=== PATIENT | male | born 1990 | race Hispanic/Latino ===

== ENCOUNTER 2021-07-26 22:19 | Emergency (ER) | payer BC ==
[~2021-07-26] VITALS: Ht 175.3 cm; Wt 141.1 kg
[2021-07-26] MEDS ORDERED: KETOROLAC 60 MG VIAL (30MG/ML) IM ONE (22:30)
[2021-07-26] MEDS ORDERED: DOXYCYCLINE 100MG IVPB (VIAL) IVPB ONE (23:00)
[2021-07-26] MEDS ORDERED: 0.9% NACL 250ML IV ONE (23:00)
[2021-07-26] MEDS ORDERED: AZITHROMYCIN 250 MG TABLET PO ONE (23:00)
[2021-07-26] MEDS ORDERED: CEFTRIAXONE 1G VIAL IM ONE (23:00)
[2021-07-26 23:01] LABS: BILIRUBIN,URINE Negative (NEGATIVE); COLOR,URINE Yellow (YELLOW); GLUCOSE, URINE (UA) Negative (NEGATIVE); KETONES,URINE Trace mg/dL (NEGATIVE); LEUKOCYTE ESTERASE ,URINE Trace (NEGATIVE); NITRATE,URINE Negative (NEGATIVE); OCCULT BLOOD,URINE Large (NEGATIVE); PH,URINE 5.5 (5.0-8.0); PROTEIN,URINE POS 1+ mg/dL (NEGATIVE)
[2021-07-26 23:02] LABS: APPEARANCE,URINE SLIGHTLY CLOUDY (CLEAR)
[2021-07-26 23:13] LABS: BACTERIA,URINE None Seen /HPF (None Seen); MUCUS,URINE Rare LPF (None Seen); RBC,URINE 51-100 /HPF (0-1); SQUAMOUS EPITHELIAL CELL,UR Few /HPF (0-2); WBC,URINE 0-1 /HPF (0-1)
[2021-07-26] MEDS ORDERED: DOXYCYCLINE HYCLATE 100 MG TABLET PO SCH (23:30)
[2021-07-26] MEDS ORDERED: KETOROLAC 60 MG VIAL (30MG/ML) ONE (23:35)
[2021-07-27 00:05] VITALS: BP 133/81
[2021-07-27] MEDS ORDERED: ONDANSETRON 4MG INJ ONE (00:51)
[2021-07-27] MEDS ORDERED: MORPHINE 4 MG SYG ONE (00:51)
[2021-07-27 00:55] VITALS: BP 153/92
[2021-07-27] MEDS ORDERED: ONDANSETRON 4MG INJ IVP ONE (01:00)
[2021-07-27] MEDS ORDERED: MORPHINE 4 MG SYG IM ONE (01:00)
[2021-07-27 01:34] VITALS: BP 140/90
[2021-07-27] MEDS ORDERED: DICYCLOMINE 20MG (10MG/ML) AMP IM ONE ×2 (01:58→02:00)
[2021-07-27 02:30] VITALS: BP 125/67
[2021-07-27] MEDS ORDERED: IBUP-2070 PO (03:32)
[2021-07-27 03:41] VITALS: BP 110/57
[2021-08-02 06:45] LABS: CHLAMYDIA DNA N.A.AMPLIFY SEE SEPARATE REPORT (Negative)
== END 2021-07-27 03:52 | disposition home or self-care (01) ==
LOC: EDH 22:19
DX: N13.2 Hydronephrosis with renal and ureteral calculous obstruction (principal); N50.82 Scrotal pain; E66.9 Obesity, unspecified; Z79.1 Long term (current) use of non-steroidal anti-inflammatories (NSAID); Z79.899 Other long term (current) drug therapy
CPT/HCPCS: 74176; 76870; 81001; 87486; 87797; 96372 ×4; 96374; 99285; J0500; J0696; J1885; J2270; J2405

== ENCOUNTER 2022-10-15 11:39 | Emergency (ER) | payer BC, OTHER ==
[~2022-10-15] VITALS: Ht 175.3 cm; Wt 138.3 kg
[~2022-10-15 11:39] MED LIST: IBUP-2070 PO
[2022-10-15 13:03] VITALS: BP 114/65
[2022-10-15] MEDS ORDERED: ONDANSETRON 4MG INJ IVP ONE (13:30)
[2022-10-15] MEDS ORDERED: 0.9%NACL 1000ML 1,000 ML IV ONE (13:30)
[2022-10-15] MEDS ORDERED: DICYCLOMINE 20MG (10MG/ML) AMP IM ONE (13:30)
[2022-10-15 13:34] LABS: BASOPHILS % (AUTO) 0.2 % (0.0-5.0); EOSINOPHILS % (AUTO) 0.2 % (0.0-8.0); HEMATOCRIT 49.8 % (42-54); LYMPHOCYTES % (AUTO) 2.2 % (21.0-51.0); MEAN CORPUSCULAR HGB CONC 33.9 g/dL (32.0-36.0); MEAN CORPUSCULAR VOLUME 82.6 fL (79-99); NEUTROPHILS % (AUTO) 91.7 % (40.0-77.0); PLATELET COUNT (AUTO) 315 K/uL (130-400); RED BLOOD CELL COUNT(AUTO) 6.03 MIL/uL (4.50-6.20); RED CELL DISTRIBUTION WIDTH 13.6 % (11.0-15.5); WHITE BLOOD COUNT (AUTO) 24.7 K/uL (4.8-10.8)
[2022-10-15 13:51] LABS: ALBUMIN 3.9 g/dL (3.5-5.0); CREATININE 1.2 mg/dL (0.5-1.5); POTASSIUM 3.9 mmol/L (3.5-5.1); TOTAL PROTEIN, SERUM 7.9 g/dL (6.0-8.3)
[2022-10-15 13:55] LABS: APPEARANCE,URINE CLEAR (CLEAR); BILIRUBIN,URINE NEGATIVE (NEGATIVE); COLOR,URINE YELLOW (YELLOW); GLUCOSE, URINE (UA) NEGATIVE (NEGATIVE); KETONES,URINE NEGATIVE (NEGATIVE); LEUKOCYTE ESTERASE ,URINE NEGATIVE Leu/uL (NEGATIVE); NITRATE,URINE NEGATIVE (NEGATIVE); OCCULT BLOOD,URINE SMALL (NEGATIVE); PROTEIN,URINE NEGATIVE (NEGATIVE); UROBILINOGEN,URINE 0.2 mg/dL (0.2-1.0)
[2022-10-15] MEDS ORDERED: ACETAMINOPHEN 500 MG TABLET PO ONE (14:00)
[2022-10-15 14:06] LABS: RBC,URINE 0-1 /HPF (0-1); WBC,URINE 0-1 /HPF (0-1)
[2022-10-15 14:07] LABS: BACTERIA,URINE Few /HPF (None Seen); SQUAMOUS EPITHELIAL CELL,UR Few /HPF (0-2)
[2022-10-15] MEDS ORDERED: CEFTRIAXONE 1G VIAL IVP ONE (14:30)
[2022-10-15] MEDS ORDERED: KETOROLAC 30MG VIAL (30MG/ML) IVP ONE (15:30)
[2022-10-15] MEDS ORDERED: DICY20TA2 PO (16:26)
[2022-10-15] MEDS ORDERED: CIPR-278 PO (16:26)
[2022-10-15] MEDS ORDERED: ONDA4TAB10 PO (16:26)
== END 2022-10-15 17:25 | disposition home or self-care (01) ==
LOC: EDH 11:39
DX: K52.9 Noninfective gastroenteritis and colitis, unspecified (principal); R10.9 Unspecified abdominal pain; E66.9 Obesity, unspecified
CPT/HCPCS: 99284; 96374; 96375; 96361; 82550; 80053; 83690; 85025; 81001; 36415; 74021; 96372; J7030; J0696; J2405; J1885; J0500